=== PATIENT | male | born 1955 | race Caucasian/White ===

== ENCOUNTER → 2022-01-17 13:27 | Outpatient (CLI) | payer MEDICARE, SELFPAY ==
[2022-01-17 19:58] LABS: Alanine Aminotransferase 40 IU/L (<50); Albumin 5.2 g/dL (3.5-5.0); Albumin Globulin Ratio 1.7 (1.0-2.8); Alkaline Phosphatase 77 U/L (38-126); Aspartate Aminotransferase 47 IU/L (17-59); BUN Creatinine Ratio 20.4 (6-22); Bilirubin Total 0.9 mg/dL (0.2-1.3); Blood Urea Nitrogen 22 mg/dL (9-20); Calcium 9.8 mg/dL (8.4-10.2); Carbon Dioxide 27 mmol/L (22-32); Chloride 102 mmol/L (98-107); Cholesterol 252 mg/dL (140-199); Estimated Glomerular Filt Rate > 60.0 mL/min (>60); Glucose 100 mg/dL (80-110); HDL Cholesterol 49 mg/dL (40-60); HEMOLYSIS 29 (0-50); LDL Cholesterol Calculated 166 mg/dL (<100); Potassium 4.5 mmol/L (3.4-5.1); Sodium 135 mmol/L (137-145); Total Protein 8.2 g/dL (6.3-8.2); Triglycerides 184 mg/dL (35-150)
[2022-01-17 20:10] LABS: Add Manual Diff / Slide Review NO; Basophils Absolute Auto 100 /uL (0-100); Basophils Percent Auto 0.7 % (0-2); Eosinophils Absolute Auto 0 /uL (0-450); Eosinophils Percent Auto 0.5 % (2-4); Hematocrit 48.7 % (41-53); Hemoglobin 16.6 g/dL (13.5-17.5); Lymphocytes Absolute Auto 1700 /uL (1100-4500); Mean Corpuscular HGB Conc 34.1 % (30-36); Mean Corpuscular Hemoglobin 33.5 PG (26-34); Mean Corpuscular Volume 98.4 fL (80-100); Monocytes Absolute Auto 1200 /uL (0-900); Neutrophils Absolute Auto 7100 /uL (1500-7000); Neutrophils Percent Auto 69.8 % (50-75); Platelet Count 299 X10^3/uL (150-400); Red Blood Cell Count 4.95 X10^6/uL (4.5-5.9); Red Cell Distribution Width 12.3 % (11.6-14.8); White Blood Cell Count 10.1 X10^3/uL (4.5-11.0)
[2022-01-17 20:17] LABS: Free T3, Triiodothyronine Free 3.42 pg/mL (2.77-5.27)
[2022-01-17 20:29] LABS: Appearance Urine UA CLEAR; Bilirubin Urine UA NEGATIVE (NEGATIVE); Color Urine UA YELLOW; Glucose Urine UA NEGATIVE (Negative); Ketones Urine UA TRACE (NEGATIVE); Leukocyte Esterase Urine UA NEGATIVE (NEGATIVE); Nitrite Urine UA NEGATIVE (Negative); Occult Blood Urine UA NEGATIVE (Negative); Protein Urine UA NEGATIVE (Negative); Specific Gravity Urine UA 1.025 (1.000-1.035); Urobilinogen Urine UA 0.2 E.U./dL (0.2)
[2022-01-17 20:31] LABS: TSH w/ Reflex to FT4 0.93 uIU/mL (0.47-4.68)
[2022-01-17 20:38] LABS: Bacteria Urine None Seen; Culture Indicated Urine Cult Not Indicated; Hyaline Casts Urine 5-10/LPF; RBC Urine 0-1/HPF (0-5/HPF); Squamous Epithelial Cell Urine 0-1 /HPF (0-5/HPF); WBC Urine 0-1/HPF (0-5/HPF)
== END ==
PROVIDERS: PCP Physician Assistant Medical; Visit Provider Family Medicine
DX: G62.9 Polyneuropathy, unspecified (principal); I10 Essential (primary) hypertension; M79.606 Pain in leg, unspecified
CPT/HCPCS: 80053; 80061; 81001; 84443; 84481; 85025

== ENCOUNTER → 2022-01-19 08:48 | Outpatient (CLI) | payer MEDICARE, SELFPAY ==
[2022-01-19 20:07] LABS: Free T3, Triiodothyronine Free 3.42 pg/mL (2.77-5.27); Free T4, Direct Thyroxine 1.46 ng/dL (0.78-2.19)
[2022-01-19 20:21] LABS: Thyroid Stimulating Hormone 1.12 uIU/mL (0.47-4.68)
== END ==
PROVIDERS: PCP Physician Assistant Medical; Visit Provider Physician Assistant Medical
DX: E78.5 Hyperlipidemia, unspecified (principal); I10 Essential (primary) hypertension; N39.0 Urinary tract infection, site not specified; R30.0 Dysuria
CPT/HCPCS: 84439; 84443; 84481; 87086

== ENCOUNTER → 2022-02-02 09:22 | Outpatient (CLI) | payer MEDICARE, SELFPAY ==
[2022-02-02 19:25] LABS: Alanine Aminotransferase 23 IU/L (<50); Albumin 4.8 g/dL (3.5-5.0); Albumin Globulin Ratio 1.7 (1.0-2.8); Alkaline Phosphatase 73 U/L (38-126); Aspartate Aminotransferase 28 IU/L (17-59); BUN Creatinine Ratio 22.5 (6-22); Bilirubin Total 0.7 mg/dL (0.2-1.3); Blood Urea Nitrogen 45 mg/dL (9-20); Calcium 9.5 mg/dL (8.4-10.2); Carbon Dioxide 27 mmol/L (22-32); Chloride 103 mmol/L (98-107); Estimated Glomerular Filt Rate 33.5 mL/min (>60); Globulin 2.8 g/dL (1.7-4.1); Glucose 114 mg/dL (80-110); HEMOLYSIS < 15 (0-50); Potassium 4.5 mmol/L (3.4-5.1); Sodium 139 mmol/L (137-145); Total Protein 7.6 g/dL (6.3-8.2)
[2022-02-02 19:57] LABS: Prostate Specific Antigen 1.17 ng/mL (0.10-4.00)
== END ==
PROVIDERS: PCP Physician Assistant Medical; Visit Provider Physician Assistant Medical
DX: E87.1 Hypo-osmolality and hyponatremia (principal); I10 Essential (primary) hypertension; R30.0 Dysuria; N39.0 Urinary tract infection, site not specified
CPT/HCPCS: 80053; 84153

== ENCOUNTER 2022-02-03 10:18 | Emergency (ER) | payer MEDICARE, SELFPAY ==
[2022-02-03 10:28] VITALS: BP 188/113; PULSE 111; RESP 16; TEMP 36.8; O2SAT 99; BMI 26.1
--- NOTE | 2022-02-03 10:37 | DI.RAD.S_ITS ---
PROCEDURE: XR CHEST 1V INDICATIONS: chest pain TECHNIQUE: One view of the chest was acquired. COMPARISON: [facility] ([place]), CR, XR CHEST 2V, 02/02/2022, 9:01. FINDINGS: Surgical changes and devices: None. Lungs and pleura: Lungs are clear. No pleural effusions or pneumothorax. Mediastinum: Mediastinal contours appear normal. Heart size is normal. Bones and chest wall: No suspicious bony lesions. Overlying soft tissues appear unremarkable. Rightward curvature of the thoracolumbar spine. IMPRESSION: No acute cardiopulmonary abnormality. Dictated by: Medardo Rubin M.D. on 02/03/2022 at 11:07 Approved by: Medardo Rubin M.D. on 02/03/2022 at 11:11
[2022-02-03 10:54] LABS: Add Manual Diff / Slide Review NO; Basophils Absolute Auto 0 /uL (0-100); Basophils Percent Auto 0.4 % (0-2); Eosinophils Absolute Auto 100 /uL (0-450); Eosinophils Percent Auto 0.6 % (2-4); Hematocrit 42.4 % (41-53); Hemoglobin 14.8 g/dL (13.5-17.5); Lymphocytes Absolute Auto 1500 /uL (1100-4500); Lymphocytes Percent Auto 17.5 % (25-40); Mean Corpuscular HGB Conc 34.9 % (30-36); Mean Corpuscular Hemoglobin 33.5 PG (26-34); Mean Corpuscular Volume 96.2 fL (80-100); Monocytes Absolute Auto 800 /uL (0-900); Monocytes Percent Auto 9.3 % (3-14); Neutrophils Absolute Auto 6200 /uL (1500-7000); Neutrophils Percent Auto 72.2 % (50-75); Platelet Count 316 X10^3/uL (150-400); Red Blood Cell Count 4.41 X10^6/uL (4.5-5.9); Red Cell Distribution Width 12.1 % (11.6-14.8); White Blood Cell Count 8.6 X10^3/uL (4.5-11.0)
[2022-02-03 11:03] LABS: Prothrombin Time 11.6 SECONDS (10.1-12.7)
[2022-02-03 11:05] LABS: PTT Partial Thromboplastin Tim 34 SECONDS (26.4-36.2)
[2022-02-03 11:16] LABS: Alanine Aminotransferase 25 IU/L (<50); Albumin 5.1 g/dL (3.5-5.0); Albumin Globulin Ratio 1.5 (1.0-2.8); Alkaline Phosphatase 84 U/L (38-126); Aspartate Aminotransferase 30 IU/L (17-59); BUN Creatinine Ratio 28.4 (6-22); Bilirubin Total 0.5 mg/dL (0.2-1.3); Blood Urea Nitrogen 40 mg/dL (9-20); Calcium 9.7 mg/dL (8.4-10.2); Carbon Dioxide 23 mmol/L (22-32); Chloride 104 mmol/L (98-107); Creatine Kinase 49 U/L (55-170); Estimated Glomerular Filt Rate 50.1 mL/min (>60); Globulin 3.3 g/dL (1.7-4.1); Glucose 132 mg/dL (80-110); HEMOLYSIS < 15 (0-50); Lipase 170 U/L (23-300); Magnesium 2.1 mg/dL (1.6-2.3); Potassium 3.9 mmol/L (3.4-5.1); Sodium 137 mmol/L (137-145); Total Protein 8.4 g/dL (6.3-8.2)
[2022-02-03 11:20] LABS: Troponin I < 0.012 ng/mL (0.01-0.034)
[2022-02-03 12:08] VITALS: BP 156/73; PULSE 92; O2SAT 98
--- NOTE | 2022-02-03 13:13 | ED_ITS ---
HPI - Recheck/Abnormal Lab/Rx General Chief Complaint: Recheck/Abnormal Lab/Rx Stated Complaint: Abnormal labs- concern for kidneys Time Seen by Provider: 02/03/22 13:13 Source: patient Mode of arrival: Ambulatory History of Present Illness HPI narrative: Patient is a 66-year-old male history of hypertension presenting today at request of his PCP in regards to his kidney function. They have been adjusting his hypertension medications hydrochlorothiazide and lisinopril. His hydrochlorothiazide was increased from 12.5-25 mg is in he is on lisinopril 40 mg daily. He was at his PCP yesterday for routine checkup they did routine labs it was found that he had a creatinine of 2.0 and a GFR of 33. He was informed of these results this morning and instructed to come directly to the emergency department. He has absolutely no symptoms. He denies any chest pain shortness of breath palpitations dizziness lightheadedness or any other symptoms. Other name Jean-Pierre Chaparro Related Data Home Medications Medication Instructions Recorded Confirmed lisinopril 40 mg tablet 40 mg PO DAILY 01/13/22 01/13/22 Previous Rx's Medication Instructions Recorded ciprofloxacin HCl 500 mg tablet 500 mg PO BID #14 tab 01/13/22 (Cipro) gabapentin 100 mg capsule 100 mg PO TID #60 cap 01/13/22 atorvastatin 10 mg tablet 10 mg PO DAILY #90 tab 01/19/22 hydrochlorothiazide 25 mg tablet 25 mg PO QAM #60 tab 01/19/22 Allergies Allergy/AdvReac Type Severity Reaction Status Date / Time No Known Drug Allergies Allergy Verified 02/03/22 13:40 Review of Systems Review of Systems Narrative: GENERAL: Denies chills, fatigue, malaise, fever, sweats, travel HEENT: Denies sinus pain, ear pain, sore throat, difficulty swallowing, neck pain RESPIRATORY: Denies dyspnea, cough, wheezing, hemoptysis, sputum. CARDIOVASCULAR: Denies chest pain, palpitations, orthopnea, edema GASTROINTESTINAL: Denies nausea, vomiting, abdominal pain, diarrhea, constipation, melena. : Denies dysuria, frequency, incontinence, hematuria, urinary retention, flank pain. MUSCULOSKELETAL: Denies weakness, joint pain, or bony pain SKIN: No rash, no erythema, no pruritus NEUROLOGIC: Denies weakness, dizziness, headache, numbness, change in speech, confusion PSYCHIATRIC: No concerning psychosocial issues. 12 point review of systems is negative except for those stated above and HPI Patient History Medical History (Updated 02/03/22 @ 13:40 by Suze Chan) Chronic back pain (~1979) Gluten enteropathy (~2005) Hypertension Measles (~1960) Tinnitus (~2009) Surgical History (System 02/03/22 @ 13:40 by Suze Chan) Anesthesia History of appendectomy History of colon resection (~2006) History of tonsillectomy Social History (System 02/03/22 @ 13:40 by Suze Chan) Smoking Status: Unknown if ever smoked Smoking Status: Unknown if ever smoked alcohol intake frequency: holidays/special occasions only Substance Use Type: marijuana Exam Initial Vital Signs Initial Vital Signs: Vital Signs Temperature 98.2 F 02/03/22 10:28 Pulse Rate 111 H 02/03/22 10:28 Respiratory Rate 16 02/03/22 10:28 Blood Pressure 188/113 H 02/03/22 10:28 Pulse Oximetry 99 02/03/22 10:28 GENERAL: Alert well-appearing 66-year-old male and in no acute distress. HEENT: Head atraumatic,EOMI, pupils reactive, face symmetric, moist mucous membranes CARDIOVASCULAR: Regular rate and rhythm without murmurs, rubs or gallops. RESPIRATORY: Breath sounds equal bilaterally, no wheezes rales or rhonchi. ABDOMEN: Soft, nontender. Normoactive bowel sounds all 4 quadrants. No guarding or rebound. EXTREMITIES: Normal range of motion, no clubbing or edema. Neurovascularly intact NEUROLOGICAL: Alert and oriented x4.Normal gait and speech. SKIN: Warm, dry, no laceration, no petechiae, no rashes or lesions. Course Orders Ordered: ED Orders 02/03/22 10:37 XR chest 1V Stat EKG-12 Lead Stat 02/03/22 10:45 Complete Blood Count AUTO DIFF Stat Comprehensive Metabolic Panel Stat Lipase Stat Magnesium Stat Partial Thromboplastin Time Stat Prothrombin Time INR Stat Troponin & CK Cardiac Panel Stat Vital Signs Vital signs: Vital Signs - 8 hr 02/03/22 12:08 Pulse Rate 92 H Blood Pressure 156/73 H Pulse Oximetry 98 MDM - Recheck/Abnormal Lab/Rx Lab Data Result diagrams: 02/03/22 10:45 02/03/22 10:45 Labs: Lab Results 02/03/22 02/03/22 02/03/22 Range/Units 10:45 10:45 10:45 WBC 8.6 (4.5-11.0) X10^3/uL RBC 4.41 L (4.5-5.9) X10^6/uL Hgb 14.8 (13.5-17.5) g/dL Hct 42.4 (41-53) % MCV 96.2 (80-100) fL MCH 33.5 (26-34) PG MCHC 34.9 (30-36) % RDW 12.1 (11.6-14.8) % Plt Count 316 (150-400) X10^3/uL Neut % (Auto) 72.2 (50-75) % Lymph % (Auto) 17.5 L (25-40) % [place] % (Auto) 9.3 (3-14) % Eos % (Auto) 0.6 L (2-4) % Baso % (Auto) 0.4 (0-2) % Neut # (Auto) 6200 (2571-3158) /uL Lymph # (Auto) 1500 (2993-8157) /uL [place] # (Auto) 800 (0-900) /uL Eos # (Auto) 100 (0-450) /uL Baso # (Auto) 0 (0-100) /uL PT 11.6 (10.1-12.7) SECONDS INR 1.0 (0.9-1.3) APTT 34 (26.4-36.2) SECONDS Sodium 137 (137-145) mmol/L Potassium 3.9 (3.4-5.1) mmol/L Chloride 104 (98-107) mmol/L Carbon Dioxide 23 (22-32) mmol/L BUN 40 H (9-20) mg/dL Creatinine 1.41 H (0.66-1.25) mg/dL Estimated GFR 50.1 L (>60) mL/min BUN/Creatinine Ratio 28.4 H (6-22) Glucose 132 H (80-110) mg/dL Calcium 9.7 (8.4-10.2) mg/dL Magnesium 2.1 (1.6-2.3) mg/dL Total Bilirubin 0.5 (0.2-1.3) mg/dL AST 30 (17-59) IU/L ALT 25 (<50) IU/L Alkaline Phosphatase 84 (38-126) U/L Total Creatine Kinase 49 L (55-170) U/L CK-MB (CK-2) TNP CK-MB (CK-2) Rel Index TNP Troponin I < 0.012 (0.01-0.034) ng/mL Total Protein 8.4 H (6.3-8.2) g/dL Albumin 5.1 H (3.5-5.0) g/dL Globulin 3.3 (1.7-4.1) g/dL Albumin/Globulin Ratio 1.5 (1.0-2.8) Lipase 170 (23-300) U/L MDM Narrative Medical decision making narrative: Patient overall appears well he is completely asymptomatic. Blood work is looked up under his other name he she had a GFR of 33 and creatinine of 2.0 yesterday. This is less likely due to his hypertension and hydrochlorothiazide possibly even lisinopril however blood work today has overall improved. At this time is recommend rechecking blood work next week and possible outpatient adjust ment of his medications. Patient states that he was on a low-dose of hydrochlorothiazide initially and it was not doing much for his blood pressure as soon as it increased his blood pressure decreased. Discharge Plan Departure Patient Disposition: Home Clinical Impression: Hypertension Activity Restrictions/Additional Instructions: *You have been diagnosed with hypertension, kidney injury *What to do: At this time you have a very mild increase of your kidney function. I recommend rechecking this with her primary care provider next week. It is likely due to your blood pressure medications which she easily changed. Please continue your normal daily activities and diet *Continue to take medications as directed *Follow up with your primary care provider in 2-3 days or call [phone] *Return to ER if you should have dizziness lightheadedness shortness of breath weakness or any new, worsening or concerning symptoms Prescriptions: No Action hydrochlorothiazide 25 mg tablet 25 mg PO QAM Qty: 60 0RF atorvastatin 10 mg tablet 10 mg PO DAILY Qty: 90 0RF lisinopril 40 mg tablet 40 mg PO DAILY 0RF ciprofloxacin HCl [Cipro] 500 mg tablet 500 mg PO BID Qty: 14 0RF gabapentin 100 mg capsule 100 mg PO TID Qty: 60 0RF Rx Instructions: can take up to 3 caps at night if needed for nerve pain in legs Referrals: Sara Gallardo PA-C [Primary Care Provider] -
== END 2022-02-03 13:36 | disposition home or self-care (01) ==
PROVIDERS: Emergency Provider Emergency Medicine; PCP Physician Assistant Medical
DX: I10 Essential (primary) hypertension (principal); Z79.899 Other long term (current) drug therapy
CPT/HCPCS: 36415; 71045; 80053; 82550; 83690; 83735; 84484; 85025; 85610; 85730; 93005; 93010; 99283; 99284

== ENCOUNTER → 2022-02-18 12:01 | Outpatient (CLI) | payer MEDICARE, SELFPAY ==
[2022-02-18 18:49] LABS: Alanine Aminotransferase 19 IU/L (<50); Albumin 4.5 g/dL (3.5-5.0); Albumin Globulin Ratio 1.7 (1.0-2.8); Alkaline Phosphatase 63 U/L (38-126); Aspartate Aminotransferase 24 IU/L (17-59); BUN Creatinine Ratio 20.3 (6-22); Bilirubin Total 0.7 mg/dL (0.2-1.3); Blood Urea Nitrogen 26 mg/dL (9-20); Calcium 9.2 mg/dL (8.4-10.2); Carbon Dioxide 24 mmol/L (22-32); Chloride 98 mmol/L (98-107); Estimated Glomerular Filt Rate 56.1 mL/min (>60); Globulin 2.7 g/dL (1.7-4.1); Glucose 118 mg/dL (80-110); HEMOLYSIS 18 (0-50); Potassium 4.1 mmol/L (3.4-5.1); Sodium 132 mmol/L (137-145); Total Protein 7.2 g/dL (6.3-8.2)
[2022-02-18 19:10] LABS: Creatinine Urine Random 68.7 mg/dL
[2022-02-18 19:15] LABS: Microalbumin Urine Random < 0.6 mg/dL (0-1.6)
== END ==
PROVIDERS: PCP Physician Assistant Medical; Visit Provider Physician Assistant Medical
DX: I10 Essential (primary) hypertension (principal); N17.9 Acute kidney failure, unspecified
CPT/HCPCS: 80053; 82043; 82570

== ENCOUNTER → 2022-03-30 10:53 | Outpatient (CLI) | payer MEDICARE, SELFPAY ==
--- NOTE | 2022-03-30 10:55 | DI.MRI.S_ITS ---
PROCEDURE: MR LUMBAR SPINE WO CON INDICATIONS: prior abnormal MRI with progressing symptoms TECHNIQUE: Noncontrast sagittal T1 spin echo and T2 fast echo, sagittal STIR, and T2 fast spin echo through the lumbar spine. In cases with scoliosis, additional coronal T2 fast spin echo may be performed. COMPARISON: [facility] ([place]), CR, XR LUMBAR SPINE 2-3V, 03/22/2022, 10:33. FINDINGS: Image quality: Excellent. Alignment and Curvature: There is there is mild 2 mm grade 1 anterolisthesis of L4 on L5. Bone Marrow: Marrow is of normal overall signal. No acute vertebral body compression fractures. Spinal Cord: Conus medullaris terminates at the L1-2 disc space level. Visualized cord demonstrates normal signal and size. Paraspinous Soft Tissues: No paravertebral masses. T12-L1: No significant disc bulging, spinal canal stenosis, or neural foraminal narrowing. L1-L2: No significant disc bulging, spinal canal stenosis, or neural foraminal narrowing. L2-L3: Mild disc desiccation and circumferential disc bulging without significant spinal canal stenosis or neural foraminal narrowing. L3-L4: Mild disc desiccation and mild bilateral facet hypertrophy. No significant spinal canal stenosis or neural foraminal narrowing. L4-L5: Mild 2 mm grade 1 anterolisthesis of L4 on L5 with mild disc desiccation and covering of the disc space as well as moderate to severe right and moderate left facet hypertrophy. A synovial cyst is seen projecting anterior and posterior to the right facet joint. Anteriorly, the cyst measures approximately 1.1 x 0.9 x 1.5 cm and effaces the right lateral recess with mass effect on the traversing right L5 nerve root. There is no significant spinal canal stenosis or neural foraminal narrowing. L5-S1: There is disc desiccation and loss of disc space height with mild circumferential disc bulging/disc-osteophyte complex and mild bilateral facet hypertrophy. Findings result in mild bilateral neural foraminal narrowing. IMPRESSION: 1. At L4-5, moderate to severe right facet hypertrophy is seen with an associated synovial cyst that projects anteriorly and posteriorly, resulting in effacement of the right lateral recess with displacement and possible impingement of the traversing right L5 nerve root. Recommend correlation with clinical symptoms and neurologic exam findings. 2. Additional mild multilevel degenerative changes as described in detail in the body report without high-grade spinal canal stenosis or neural foraminal narrowing. Dictated by: Jose David Hills M.D. on 03/30/2022 at 12:14 Approved by: Jose David Hills M.D. on 03/30/2022 at 12:27
[2022-03-30 12:16] LABS: Add Manual Diff / Slide Review NO; Basophils Absolute Auto 0 /uL (0-100); Basophils Percent Auto 0.3 % (0-2); Eosinophils Absolute Auto 100 /uL (0-450); Eosinophils Percent Auto 1.7 % (2-4); Hematocrit 39.5 % (41-53); Hemoglobin 13.9 g/dL (13.5-17.5); Lymphocytes Absolute Auto 2200 /uL (1100-4500); Lymphocytes Percent Auto 26.7 % (25-40); Mean Corpuscular HGB Conc 35.2 % (30-36); Mean Corpuscular Hemoglobin 33.3 PG (26-34); Mean Corpuscular Volume 94.7 fL (80-100); Monocytes Absolute Auto 1000 /uL (0-900); Monocytes Percent Auto 11.9 % (3-14); Neutrophils Absolute Auto 4900 /uL (1500-7000); Neutrophils Percent Auto 59.4 % (50-75); Platelet Count 237 X10^3/uL (150-400); Red Blood Cell Count 4.18 X10^6/uL (4.5-5.9); Red Cell Distribution Width 13.1 % (11.6-14.8); White Blood Cell Count 8.3 X10^3/uL (4.5-11.0)
[2022-03-30 12:19] LABS: Alanine Aminotransferase 16 IU/L (<50); Albumin 4.5 g/dL (3.5-5.0); Albumin Globulin Ratio 1.6 (1.0-2.8); Alkaline Phosphatase 79 U/L (38-126); Aspartate Aminotransferase 24 IU/L (17-59); BUN Creatinine Ratio 18.4 (6-22); Bilirubin Total 0.7 mg/dL (0.2-1.3); Blood Urea Nitrogen 19 mg/dL (9-20); Calcium 9.2 mg/dL (8.4-10.2); Carbon Dioxide 27 mmol/L (22-32); Chloride 100 mmol/L (98-107); Estimated Glomerular Filt Rate > 60 mL/min (>60); Globulin 2.9 g/dL (1.7-4.1); Glucose 102 mg/dL (80-110); HEMOLYSIS < 15 (0-50); Sodium 136 mmol/L (137-145); Total Protein 7.4 g/dL (6.3-8.2)
[2022-03-30 12:44] LABS: Erythrocyte Sedimentation Rate 9 MM/HR (0-15)
== END ==
PROVIDERS: PCP Physician Assistant Medical; Referring Provider Physician Assistant; Visit Provider Physician Assistant
DX: M47.26 Other spondylosis with radiculopathy, lumbar region (principal); N17.9 Acute kidney failure, unspecified; M71.38 Other bursal cyst, other site
CPT/HCPCS: 36415; 72148; 80053; 85025; 85651

== ENCOUNTER → 2022-04-20 08:57 | Outpatient (CLI) | payer MEDICARE, SELFPAY ==
[2022-04-20 21:08] LABS: COVID19 - ORCAS (NP or Nasal) Negative (Negative)
== END ==
PROVIDERS: PCP Physician Assistant Medical; Visit Provider Physician Assistant
DX: Z20.822 Contact with and (suspected) exposure to COVID-19 (principal)
CPT/HCPCS: C9803; U0003

== ENCOUNTER → 2023-07-19 09:55 | Outpatient (CLI) | payer MEDICARE, SELFPAY ==
[2023-07-19 20:13] LABS: Alanine Aminotransferase 23 IU/L (<50); Albumin 4.5 g/dL (3.5-5.0); Albumin Globulin Ratio 1.8 (1.0-2.8); Alkaline Phosphatase 69 U/L (38-126); Aspartate Aminotransferase 26 IU/L (17-59); Bilirubin Total 0.5 mg/dL (0.2-1.3); Blood Urea Nitrogen 25 mg/dL (9-20); Calcium 9.4 mg/dL (8.4-10.2); Carbon Dioxide 24 mmol/L (22-32); Chloride 100 mmol/L (98-107); Cholesterol 185 mg/dL (140-199); Estimated Glomerular Filt Rate > 60 mL/min (>60); Globulin 2.5 g/dL (1.7-4.1); Glucose 106 mg/dL (80-110); HDL Cholesterol 34 mg/dL (40-60); HEMOLYSIS < 15 (0-50); LDL Cholesterol Calculated 114 mg/dL (<100); Potassium 4.4 mmol/L (3.4-5.1); Sodium 134 mmol/L (137-145); Triglycerides 183 mg/dL (35-150)
[2023-07-19 20:14] LABS: Add Manual Diff / Slide Review NO; Basophils Absolute Auto 0 /uL (0-100); Basophils Percent Auto 0.5 % (0-2); Eosinophils Absolute Auto 100 /uL (0-450); Hematocrit 37.8 % (41-53); Hemoglobin 13.2 g/dL (13.5-17.5); Lymphocytes Absolute Auto 1900 /uL (1100-4500); Mean Corpuscular Hemoglobin 33.7 PG (26-34); Mean Corpuscular Volume 96.3 fL (80-100); Monocytes Absolute Auto 800 /uL (0-900); Monocytes Percent Auto 12.6 % (3-14); Neutrophils Absolute Auto 3600 /uL (1500-7000); Neutrophils Percent Auto 55.9 % (50-75); Platelet Count 285 X10^3/uL (150-400); Red Blood Cell Count 3.93 X10^6/uL (4.5-5.9); Red Cell Distribution Width 13.5 % (11.6-14.8); White Blood Cell Count 6.4 X10^3/uL (4.5-11.0)
[2023-07-19 20:26] LABS: Appearance Urine UA CLEAR; Bilirubin Urine UA NEGATIVE (NEGATIVE); Color Urine UA YELLOW; Glucose Urine UA NEGATIVE (Negative); Ketones Urine UA NEGATIVE (NEGATIVE); Leukocyte Esterase Urine UA NEGATIVE (NEGATIVE); Nitrite Urine UA NEGATIVE (Negative); Occult Blood Urine UA NEGATIVE (Negative); Protein Urine UA NEGATIVE (Negative); Specific Gravity Urine UA 1.015 (1.000-1.035); Urobilinogen Urine UA 0.2 E.U./dL (0.2); pH Urine UA 5.5 (4.5-8.0)
[2023-07-19 20:31] LABS: Bacteria Urine None Seen; Culture Indicated Urine Cult Not Indicated; RBC Urine None Seen (0-5/HPF); Squamous Epithelial Cell Urine None Seen (0-5/HPF); Urine Comments Microscopic Normal; WBC Urine None Seen (0-5/HPF)
[2023-07-19 20:39] LABS: Microalbumin Urine Random < 0.6 mg/dL (0-1.6); TSH w/ Reflex to FT4 0.66 uIU/mL (0.47-4.68)
== END ==
PROVIDERS: PCP Physician Assistant Medical; Visit Provider Physician Assistant Medical
DX: N17.9 Acute kidney failure, unspecified (principal); N41.1 Chronic prostatitis; R30.0 Dysuria; E87.1 Hypo-osmolality and hyponatremia; I10 Essential (primary) hypertension; N39.0 Urinary tract infection, site not specified; R00.2 Palpitations; R73.9 Hyperglycemia, unspecified; R79.9 Abnormal finding of blood chemistry, unspecified; E78.5 Hyperlipidemia, unspecified
CPT/HCPCS: 80053; 80061; 81001; 82043; 82570; 83036; 84443; 85025

== ENCOUNTER → 2023-09-04 09:40 | Outpatient (CLI) | payer MEDICARE, SELFPAY | PROVIDERS: PCP Physician Assistant Medical; Visit Provider Family Medicine | DX: R10.9 Unspecified abdominal pain (principal); R39.89 Other symptoms and signs involving the genitourinary system | CPT/HCPCS: 87086 ==

== ENCOUNTER → 2025-02-04 10:21 | Outpatient (CLI) | payer MEDICARE, SELFPAY ==
[2025-02-04 19:48] LABS: Add Manual Diff / Slide Review NO; Basophils Absolute Auto 0 /uL (0-100); Basophils Percent Auto 0.8 % (0-2); Eosinophils Absolute Auto 100 /uL (0-450); Eosinophils Percent Auto 0.9 % (2-4); Hematocrit 38.8 % (41-53); Hemoglobin 13.6 g/dL (13.5-17.5); Lymphocytes Absolute Auto 1500 /uL (1100-4500); Lymphocytes Percent Auto 23.6 % (25-40); Mean Corpuscular HGB Conc 35.1 % (30-36); Mean Corpuscular Hemoglobin 37.1 PG (26-34); Mean Corpuscular Volume 105.8 fL (80-100); Monocytes Absolute Auto 600 /uL (0-900); Monocytes Percent Auto 9.9 % (3-14); Neutrophils Absolute Auto 4100 /uL (1500-7000); Neutrophils Percent Auto 64.8 % (50-75); Platelet Count 350 X10^3/uL (150-400); Red Blood Cell Count 3.67 X10^6/uL (4.5-5.9); Red Cell Distribution Width 17.2 % (11.6-14.8); White Blood Cell Count 6.4 X10^3/uL (4.5-11.0)
[2025-02-04 19:58] LABS: HEMOLYSIS < 15 (0-50)
[2025-02-04 20:03] LABS: HEMOLYSIS < 15 (0-50); Iron 128 ug/dL (49-181)
[2025-02-04 20:05] LABS: Alanine Aminotransferase 27 IU/L (<50); Albumin 4.8 g/dL (3.5-5.0); Albumin Globulin Ratio 2.1 (1.0-2.8); Alkaline Phosphatase 89 U/L (38-126); Aspartate Aminotransferase 37 IU/L (17-59); BUN Creatinine Ratio 16.5 (6-22); Bilirubin Total 0.7 mg/dL (0.2-1.3); Blood Urea Nitrogen 22 mg/dL (9-20); Calcium 9.4 mg/dL (8.4-10.2); Carbon Dioxide 26 mmol/L (22-32); Chloride 98 mmol/L (98-107); Cholesterol 208 mg/dL (140-199); Estimated Glomerular Filt Rate 58 mL/min (>60); Globulin 2.3 g/dL (1.7-4.1); Glucose 108 mg/dL (80-110); HDL Cholesterol 58 mg/dL (40-60); LDL Cholesterol Calculated 108 mg/dL (<100); Potassium 4.4 mmol/L (3.4-5.1); Sodium 135 mmol/L (137-145); Total Protein 7.1 g/dL (6.3-8.2); Triglycerides 210 mg/dL (35-150)
[2025-02-04 20:10] LABS: Vitamin D 25 Hydroxy (D3) 23.8 ng/mL (30.0-100.0)
[2025-02-04 20:13] LABS: Percent Iron Saturation 51 % (20-50); Total Iron Binding Capacity 251 ug/dL (261-462); Transferrin 200 mg/dL (206-381)
[2025-02-04 20:33] LABS: Thyroid Stimulating Hormone 0.984 uIU/mL (0.47-4.68)
[2025-02-04 21:01] LABS: Ferritin 216 ng/mL (18-464)
[2025-02-04 21:30] LABS: Folate 1.3 ng/mL (2.76-20.0); Vitamin B12 493 pg/mL (239-931)
[2025-02-04 22:00] LABS: Prostate Specific Antigen Scrn 1.97 ng/mL (0.1-4.0)
== END ==
PROVIDERS: PCP Physician Assistant Medical; Visit Provider Family Medicine
DX: I10 Essential (primary) hypertension (principal); E87.1 Hypo-osmolality and hyponatremia; E78.5 Hyperlipidemia, unspecified; R73.9 Hyperglycemia, unspecified; D64.9 Anemia, unspecified; K90.0 Celiac disease; Z12.5 Encounter for screening for malignant neoplasm of prostate
CPT/HCPCS: 80053; 80061; 82306; 82607; 82728; 82746; 83540; 83550; 84443; 85025; G0103

== ENCOUNTER → 2025-07-31 14:03 | Outpatient (CLI) | payer MEDICARE, SELFPAY ==
[2025-07-31 19:48] LABS: Add Manual Diff / Slide Review NO; Hematocrit 35.5 % (41-53); Hemoglobin 12.6 g/dL (13.5-17.5); Lymphocytes Absolute Auto 2100 /uL (1100-4500); Mean Corpuscular HGB Conc 35.4 % (30-36); Mean Corpuscular Hemoglobin 34.9 PG (26-34); Mean Corpuscular Volume 98.6 fL (80-100); Platelet Count 369 X10^3/uL (150-400)
[2025-07-31 20:01] LABS: HEMOLYSIS < 15 (0-50); Iron 54 ug/dL (49-181)
[2025-07-31 20:03] LABS: Alanine Aminotransferase 22 IU/L (<50); Albumin 4.4 g/dL (3.5-5.0); Albumin Globulin Ratio 1.8 (1.0-2.8); Alkaline Phosphatase 82 U/L (38-126); Blood Urea Nitrogen 25 mg/dL (9-20); Calcium 9.4 mg/dL (8.4-10.2); Carbon Dioxide 24 mmol/L (22-32); Chloride 104 mmol/L (98-107); Estimated Glomerular Filt Rate > 60 mL/min (>60); Globulin 2.4 g/dL (1.7-4.1); Glucose 101 mg/dL (70-99); HEMOLYSIS < 15 (0-50); Potassium 4.2 mmol/L (3.4-5.1); Sodium 136 mmol/L (137-145); Total Protein 6.8 g/dL (6.3-8.2)
[2025-07-31 20:15] LABS: Percent Iron Saturation 21 % (20-50); Total Iron Binding Capacity 258 ug/dL (261-462); Transferrin 211 mg/dL (206-381)
[2025-07-31 20:39] LABS: Ferritin 190 ng/mL (18-464)
[2025-07-31 21:09] LABS: Folate 7.7 ng/mL (2.76-20.0)
== END ==
PROVIDERS: PCP Physician Assistant Medical; Visit Provider Family Medicine
DX: R79.0 Abnormal level of blood mineral (principal); D64.9 Anemia, unspecified; R94.4 Abnormal results of kidney function studies; K90.0 Celiac disease; E53.8 Deficiency of other specified B group vitamins; Z90.49 Acquired absence of other specified parts of digestive tract
CPT/HCPCS: 80053; 82728; 82746; 83540; 83550; 85025

== ENCOUNTER → 2025-08-01 09:41 | Outpatient (CLI) | payer MEDICARE, SELFPAY ==
[2025-08-01 19:03] LABS: Appearance Urine UA CLEAR; Bilirubin Urine UA NEGATIVE (NEGATIVE); Color Urine UA YELLOW; Glucose Urine UA NEGATIVE (Negative); Ketones Urine UA NEGATIVE (NEGATIVE); Leukocyte Esterase Urine UA NEGATIVE (NEGATIVE); Nitrite Urine UA NEGATIVE (Negative); Occult Blood Urine UA NEGATIVE (Negative); Protein Urine UA NEGATIVE (Negative); Specific Gravity Urine UA 1.010 (1.000-1.035); Urobilinogen Urine UA 0.2 E.U./dL (0.2); pH Urine UA 7.0 (4.5-8.0)
[2025-08-01 19:09] LABS: Culture Indicated Urine Cult Not Indicated
== END ==
PROVIDERS: PCP Physician Assistant Medical; Visit Provider Physician Assistant Medical
DX: N17.9 Acute kidney failure, unspecified (principal); M54.9 Dorsalgia, unspecified
CPT/HCPCS: 81001

== ENCOUNTER → 2025-08-21 12:01 | Outpatient (CLI) | payer MEDICARE, SELFPAY | PROVIDERS: PCP Physician Assistant Medical; Visit Provider Family Medicine | DX: R79.0 Abnormal level of blood mineral (principal); D64.9 Anemia, unspecified; M54.41 Lumbago with sciatica, right side; I10 Essential (primary) hypertension; G89.29 Other chronic pain; M54.16 Radiculopathy, lumbar region; Z12.5 Encounter for screening for malignant neoplasm of prostate | CPT/HCPCS: 82784; 83883; 84155; 84165; 85651; 86140; 86334; G0103 ==

== ENCOUNTER → 2025-08-22 10:39 | Outpatient (CLI) | payer MEDICARE, SELFPAY ==
--- NOTE | 2025-08-22 10:41 | DI.MRI.S_ITS ---
PROCEDURE: MR LUMBAR SPINE WO CON INDICATIONS: severe lumbar pain TECHNIQUE: Noncontrast sagittal T1 spin echo and T2 fast echo, sagittal STIR, and T2 fast spin echo through the lumbar spine. In cases with scoliosis, additional coronal T2 fast spin echo may be performed. COMPARISON: [facility], MR, MR LUMBAR SPINE WO CON, 03/30/2022, 10:59. FINDINGS: Image quality: Excellent. Alignment and Curvature: There is mild L4 anterolisthesis. Bone Marrow: Marrow is of normal overall signal. No acute vertebral body compression fractures. Spinal Cord: Conus medullaris terminates at the L1 level. Visualized cord demonstrates normal signal and size. Paraspinous Soft Tissues: No paravertebral masses. T12-L1: Normal appearance. L1-L2: Normal appearance. L2-L3: Mild disc bulge and facet arthropathy with mild effacement of the thecal sac. L3-L4: Mild disc bulge and facet arthropathy, no spinal stenosis. L4-L5: Mild disc bulge. Significant facet arthropathy, more on the right. There is mild central spinal stenosis as well as mild left and mild to moderate right lateral recess and right foraminal stenosis. L5-S1: There is disc bulge. There is a superimposed left central herniation measuring approximately 1.2 cm in craniocaudal extent and 3 x 5 millimeter in transverse diameter. There is inferior migration to the pedicular level. There is moderate left lateral recess stenosis as well as mild to moderate bilateral foraminal stenosis, more on the left, due also to facet arthropathy. IMPRESSION: 1. The previously seen synovial cyst on the right at L4-L5 has resolved. There is persistent underlying facet arthropathy with mild to moderate right lateral spinal stenosis at this level. 2. At L5-S1 there is again seen a disc extrusion with associated left lateral spinal stenosis. 3. No new significant central stenosis or acute osseous lesions. Dictated by: Patric Russell M.D. on 08/23/2025 at 16:50 Approved by: Patric Russell M.D. on 08/23/2025 at 17:02
== END ==
LOC: MRI 10:40
PROVIDERS: PCP Family Medicine; Referring Provider Family Medicine; Visit Provider Family Medicine
DX: M47.26 Other spondylosis with radiculopathy, lumbar region (principal); M48.061 Spinal stenosis, lumbar region without neurogenic claudication; M51.17 Intervertebral disc disorders with radiculopathy, lumbosacral region; M48.07 Spinal stenosis, lumbosacral region; M71.38 Other bursal cyst, other site; G89.29 Other chronic pain; Z98.890 Other specified postprocedural states
CPT/HCPCS: 72148

== ENCOUNTER → 2025-09-02 14:08 | Outpatient (CLI) | payer MEDICARE, SELFPAY ==
[2025-09-02 18:54] LABS: Hematocrit 33.2 % (41-53); Hemoglobin 11.8 g/dL (13.5-17.5); Mean Corpuscular HGB Conc 35.5 % (30-36); Mean Corpuscular Hemoglobin 34.4 PG (26-34); Mean Corpuscular Volume 96.9 fL (80-100); Platelet Count 250 X10^3/uL (150-400)
[2025-09-02 19:19] LABS: HEMOLYSIS 19 (0-50); Iron 71 ug/dL (49-181)
[2025-09-02 19:31] LABS: Percent Iron Saturation 28 % (20-50); Total Iron Binding Capacity 254 ug/dL (261-462); Transferrin 212 mg/dL (206-381)
[2025-09-02 19:56] LABS: Prostate Specific Antigen 3.09 ng/mL (0.10-4.00)
[2025-09-02 20:01] LABS: Ferritin 326 ng/mL (18-464)
== END ==
PROVIDERS: PCP Family Medicine; Visit Provider Family Medicine
DX: D64.9 Anemia, unspecified (principal); R79.0 Abnormal level of blood mineral; R97.20 Elevated prostate specific antigen [PSA]; I10 Essential (primary) hypertension
CPT/HCPCS: 82728; 83540; 83550; 84153; 85027